=== PATIENT | female | born 1975 | race Caucasian/White ===

== ENCOUNTER → 2018-01-01 | Outpatient (CLI) | payer BC, OTHER ==
[~2018-01-01] VITALS: Ht 167.6 cm; Wt 72.7 kg
[~2018-01-01] MED LIST: ACCUNEB SO1.25 MG/1 INH; AMITRIPTYLINE H10 M3 PO; AMITRIPTYLINE H25 M2 PO; FLEXERIL PO; FLONASE 0.05%50 MCG NASAL; HYDROCODON-ACE1 EAC8 PO; HYDROCODONE-AP1 EAC6 PO; MEDROLDOSEPACK PO; MOBIC15 MG PO; PROAIR HFA8.5 GM; QVAR8.7 G1 INH; SINGULAIR 10 MG10 M1 PO; ZYRTEC10 M2 PO; ZYRTEC10 MG PO; [UNRECOGNIZED DRUG - SUPPLY]
--- NOTE | ~2018-01-01 | HPC ---
[facility] [place] [address] [place] [address] PAIN MANAGEMENT CONSULTATION Name: TRISTAN HENSLEY Room #: REG BERNIE Goode#: [id number] Admission: 01/01/18 Attend Phys: Fausto Garcia MD Discharge: Date of : 73 Report #: [id number] THIS REPORT FOR: //name// CC: [facility] physician/PCP Fausto Garcia DATE OF SERVICE: 01/01/2018 Account Number FOLLOWUP HISTORY: Things were going pretty well. I was playing volleyball and reach to the right while playing. I have had pain and discomfort and return of discomfort in my right neck with numbness in my fingers. FOLLOWUP HISTORY: The patient is a 42-year-old female who has been seen in the pain clinic in the past because of cervical radiculopathy. She has had pain in her right arm, shoulder discomfort down into her right hand. She had MRI that showed at C5-C6, moderate to severe right and left neural foraminal stenosis because of facet arthrosis. She also had a bulge at C6-C7 with moderate to severe right and moderate to severe left neuroforaminal stenosis due to uncovertebral facet arthrosis. She has noticed that her pain has returned. It is not as bad as it was when we saw her initially, but it started to increase. She was seen by her chiropractor. She did undergo some treatment. She has been icing her neck 4 times per day. She did have some dry needle treatment. Overall, she feels that things have improved, but is still problematic. She would like to get a handle on it before it gets worse. She has a new desk at work. Does not feel that it is as ergonomic as it could be. 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 Feels that hydrocodone, cyclobenzaprine and Mobic were helpful. She would like to resume use of these medications. ALLERGIES: No known drug allergies. MEDICATIONS: Singulair 10 mg, albuterol ProAir, IUD Mirena, Flonase 0.05% spray. Medications used in the past, Flexeril 10 mg t.i.d., hydrocodone 5/325 p.o. q.8 hours p.r.n., Elavil 25 mg at bedtime and meloxicam 15 mg daily. PAIN CLINIC ASSESSMENT: 1. 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 2. Height 5 feet 6 inches, weight 160 pounds, BMI is 25.9. 3. Vital signs: Blood pressure 150/95, respiratory rate 16, room air saturation is 99 and pulse 68. 4. Pain intensity 4-5/10. 5. Fall risk. The patient has not fallen in the last month. She did injure [address] [address] PAIN MANAGEMENT CONSULTATION Name: TRISTAN HENSLEY Room #: REG [facility].#: [id number] Admission: 01/01/18 Attend Phys: Fausto Garcia MD Discharge: Date of : 73 Report #: [id number] her arm when she was diving for a ball while playing volleyball. 6. Blood thinner. The patient is not on a blood thinning medication. 7. History of hypertension. The patient has not been treated for hypertension. 8. Opioid therapy greater than 6 weeks. The patient is not on opioid medication on a regular basis. 9. Risk assessment tool, low for use of opioid medication. 10. Functional assessment tool. 11. Recreational drug use. The patient denies use of recreational drugs. 12. Tobacco: The patient currently smokes tobacco, smokes 10 cigarettes per day, smoked for 30 years. 13. Alcohol: The patient denies use of alcoholic beverages on a regular basis. PHYSICAL EXAMINATION: GENERAL: The patient is a well-developed, well-nourished white female. Appears her stated age. She is alert and oriented x 3. Affect is appropriate. Speech is fluent. Mucous membranes are moist. NEUROLOGIC: Neck is without adenopathy or JVD. The patient does note some increased range of motion in her neck. States that it was somewhat limited because of spasms. Muscle strength in the upper extremity is judged to be 5/5 for the major muscle groups. The patient has a perception of some numbness and tingling down into her fingers on the right side. Notes some shoulder pain and discomfort. The patient carries her right arm close to her body to decrease stretch on the nerve. HEART: Regular rate. S1, S2. LUNGS: Clear to auscultation without rales. ABDOMEN: Nontender. Lower extremity muscle strength is judged to be 5/5 for the major muscle groups. MUSCULOSKELETAL: Without significant scoliosis, kyphosis or lordosis. Muscle bulk and lower extremity symmetrical without sensory changes. IMPRESSION: 1. History of cervical radiculopathy with findings of C5-C6 moderate to severe right and moderate to severe left neuroforaminal stenosis due to uncovertebral arthrosis. 2. C6-C7, there is a small broad-based posterior disk bulge. There is moderate to severe right and moderate to severe left neuroforaminal stenosis due to uncovertebral arthrosis. 3. Cervical radiculopathy. 3. Exacerbation of cervical radiculopathy with irritation of the right C6-C7 nerve root. RECOMMENDATIONS: We discussed treatment options with the patient. She states that she has seen her chiropractor. Feels like things are going reasonably well. She has had dry needling of the muscles, which are tense in her neck. She has noted some improvement in its range of motion. States that she is using ice to the neck about 4 times per day. The patient is petitioned and her [facility] [address] [place] [address] PAIN MANAGEMENT CONSULTATION Name: TRISTAN HENSLEY Room #: [facility]#: [id number] Admission: 01/01/18 Attend Phys: Fausto Garcia MD Discharge: Date of : 73 Report #: [id number] employer for a more ergonomic setup at work. She feels that the Medrol Dosepak was helpful in the last episode. She also would like to try hydrocodone, Flexeril and Mobic. She has found that these items were also instrumental. We will renew the medication. The patient has been given a script for the above listed medications. She will call us if she has any problems or concerns. We would like to thank you for letting us participate in her care. We hope she continues to improve. <ELECTRONICALLY SIGNED> By: Fausto Garcia MD 01/02/18 [id number] Fausto Garcia MD /nt
[2018-01-01 08:38] VITALS: BP 150/95
== END ==
LOC: PAIN 06-21 07:24
DX: M48.02 Spinal stenosis, cervical region (principal); M54.12 Radiculopathy, cervical region